=== PATIENT | male | born 2000 | race Caucasian/White ===

== ENCOUNTER 2021-07-23 19:21 | Emergency (ER) | payer OTHER ==
[2021-07-23 19:41] VITALS: BP 115/71; PULSE 74; TEMP 97.8; BMI 25.0
[2021-07-23] MEDS ORDERED: DIPHTH,PERTUSS(ACELL),TET 0.5 ML DISP.SYRIN IM ONE ×2 (20:11→20:17)
== END 2021-07-23 21:39 | disposition home or self-care (01) ==
LOC: JERFT 19:21
PROC: 3E0234Z Introduction of Serum, Toxoid and Vaccine into Muscle, Percutaneous Approach (ICD-10-PCS; principal; 2021-07-23)
DX: S61.210A Laceration without foreign body of right index finger without damage to nail, initial encounter (principal); W27.0XXA Contact with workbench tool, initial encounter
CPT/HCPCS: 90471; 90715; 99284-25

== ENCOUNTER 2021-09-12 17:41 | Emergency (ER) | payer OTHER ==
[2021-09-12 17:51] VITALS: BP 108/67; PULSE 88; TEMP 97.9; BMI 24.3
== END 2021-09-12 19:23 | disposition home or self-care (01) ==
LOC: JERFT 17:41
DX: Z20.2 Contact with and (suspected) exposure to infections with a predominantly sexual mode of transmission (principal)
CPT/HCPCS: 36415; 86696; 86780; 87491; 87591; 99283-25